=== PATIENT | female | born 1975 | race Caucasian/White ===

== ENCOUNTER 2024-08-23 12:27 | Emergency (ER) | payer BC ==
[2024-08-23 13:41] LABS: Absolute Eosinophils 0.1 K/uL (0-0.5); Absolute Lymphocytes (CBC) 1.6 K/uL (0.7-4.9); Absolute Monocytes 0.4 K/uL (0.1-1.3); Absolute Neutrophil 4.7 K/uL (1.8-8.0); Basophils % 0.6 % (0-1.3); Eosinophils % 2.2 % (0-4.4); Hematocrit 42.5 % (36.0-45.0); Hemoglobin 14.3 g/dL (12.0-15.0); Lymphocytes % 22.9 % (15.3-44.8); MCH 29.2 pg (27.0-35.0); MCHC 33.8 g/dL (32.0-36.0); MCV 86.5 fL (80-100); MPV 7.1 fL (7.6-11.3); Monocytes % 5.3 % (3.3-12.3); Nucleated Red Blood Cells % 0.1 % (0-0); Platelets 245 thou/uL (152-406); RBC Red Blood Cell Count 4.91 M/uL (3.86-4.86); Red Cell Distribution Width 12.6 % (12.1-15.2)
[2024-08-23 13:59] LABS: Albumin 3.7 g/dL (3.4-5.0); Anion Gap 10.1 mEq/L (5.0-15.0); Bilirubin Total 0.5 mg/dL (0.2-1.0); Globulin 3.8 g/dL (2.3-3.5); Potassium 4.1 mEq/L (3.5-5.1); Protein, Total 7.5 g/dL (6.4-8.2)
[2024-08-23] MEDS ORDERED: KETOROLAC 30 MG/ML INJ ONE (14:09)
[2024-08-23] MEDS ORDERED: ONDANSETRON 4 MG/2 ML VIAL ONE (14:09)
[2024-08-23] MEDS ORDERED: NA CHLORIDE 0.9% 1,000 ML ONE (14:09)
[2024-08-23] MEDS ORDERED: FAMOTIDINE 20 MG/2 ML VIAL IV ONE (14:09)
--- NOTE | 2024-08-23 15:07 | RAD REPORT ---
EXAMINATION: CT ABDOMEN AND PELVIS WITH CONTRAST CLINICAL INDICATION: Female, 49 years old.ABD PAIN TECHNIQUE: CT abdomen and pelvis was performed, after the administration of IV contrast, [facility]. Axial, sagittal and coronal reconstructions were obtained. One or more of the following dose reduction techniques were used: Automated exposure control, adjustment of the mA and/o r kV according to patient size, and/or iterative reconstruction. Unless otherwise specified, incidental findings do not require dedicated imaging follow-up. [id number]. COMPARISON: No prior exam. FINDINGS: LOWER CHEST: No acute process identified.No significant pericardial effusion. Mild circumferential th ickening of the distal esophagus which could reflect esophagitis. UPPER GI: No significant abnormality. LIVER: Hepatic steatosis, but otherwise unremarkable. GALLBLADDER/BILE DUCTS: Cholelithiasis without CT evidence of acute cholecystitis.? PANCREAS: No mass, ductal dilation, or rizwan-pancreatic fluid. SPLEEN: Low density splenic lesion(s), statistically benign. ADRENALS: No adrenal masses. KIDNEYS AND URETERS: No hydronephrosis.No suspicious renal mass. ABDOMINAL AORTA AND OTHER VESSELS: Normal caliber aorta and IVC. PERITONEUM: No abnormal free fluid. No free air. LYMPH NODES: No pathologic lymphadenopathy. ABDOMINAL WALL: Unremarkable SMALL BOWEL/COLON: Small bowel has normal course and caliber. No colonic wall thickening or pericolon ic inflammatory changes.Normal appendix. URINARY BLADDER: Underdistended but grossly unremarkable. REPRODUCTIVE ORGANS: 3.3 cm left adnexal cyst. MUSCULOSKELETAL: No acute or suspicious osseous abnormality. SI joint degenerative changes. ADDITIONAL FINDINGS: None. IMPRESSION: No acute or significant abnormalities seen in the abdomen or pelvis. Cholelithiasis without CT evidence of acute cholecystitis. 3.3 cm left adnexal cyst. If early post menopause, ultrasound follow-up in 6-12 months is recommended . If premenopausal, no follow-up required.
--- NOTE | 2024-08-23 15:40 | RAD REPORT ---
Abdomen Exam Limited: 08/23/2024 3:12 PM CLINICAL HISTORY: ABD PAIN STUDY: Limited right upper quadrant ultrasound of abdomen. COMPARISON: Prior films compared to CT Abdomen study dated same-day FINDINGS: Liver: Limited evaluation but grossly unremarkable. Bile ducts: No intrahepatic or extrahepatic biliary ductal dilatation. Common bile duct measures 5 mm. Gallbladder: Cholelithiasis. No gallbladder wall thickening. A sonographic Chaney sign was reported. IMPRESSION: Cholelithiasis but no gallbladder wall thickening or pericholecystic fluid. A sonographic Chaney sign was reported. Early or mild acute cholecystitis difficult to exclude.
--- NOTE | 2024-08-23 16:43 | ER ---
Nurse's Notes [facility] Name: Davina Wright Age: 49 yrs Sex: Female : 1975 Arrival Date: 08/23/2024 Time: 12:27 Bed 4 Private MD: Diagnosis: Upper abdominal pain, unspecified Presentation: 08/23 12:41 Chief complaint: Patient states: has been having a lot of stomach issues for a while, iw gas. bloating, loose stool. Coronavirus screen: At this time, the client does not indicate any symptoms associated with coronavirus-19. Ebola Screen: No symptoms or risks identified at this time. Initial Sepsis Screen: Does the patient meet any 2 criteria? No. Patient's initial sepsis screen is negative. Does the patient have a suspected source of infection? No. Patient's initial sepsis screen is negative. Risk Assessment: Do you want to hurt yourself or someone else? Patient reports no desire to harm self or others. Onset of symptoms was June 2024. 12:41 Method Of Arrival: Ambulatory iw 12:41 Acuity: SEFERINO 3 iw Historical: - Allergies: 12:46 Oxycodone HCl; iw - Home Meds: 12:44 propranolol 20 mg Oral tablet 2 times per day [Active]; fluoxetine 80 mg Oral tablet iw daily [Active]; buspirone 5 mg Oral tablet 2 times per day [Active]; prazosin 1 mg Oral capsule every evening [Active]; esomeprazole magnesium 40 mg oral capsule,delayed release (e.c.) [Active]; cetirizine 10 mg oral capsule daily [Active]; - PMHx: 12:44 Anxiety; iw 12:46 Gastroesophageal reflux disease; sb4 - Immunization history:: Adult Immunizations not up to date. - Infectious Disease History:: Denies. - Social history:: Smoking status: Patient denies any tobacco usage or history of. Screenin:22 Abuse screen: Denies threats or abuse. Nutritional screening: No deficits noted. ap3 Tuberculosis screening: No symptoms or risk factors identified. 16:58 [facility] ED Fall Risk Assessment (Adult) History of falling in the last 3 months, cm10 including since admission No falls in past 3 months (0 pts) Confusion or Disorientation No (0 pts) Intoxicated or Sedated No (0 pts) Impaired Gait No (0 pts) Mobility Assist Device Used No (0 pt) Altered Elimination No (0 pt) Score/Fall Risk Level 0 - 2 = Low Risk Oriented to surroundings, Maintained a safe environment, Hourly rounding (assess needs \T\ fall precautionary measures) done. Assessment: 14:21 General: Appears in no apparent distress. Behavior is calm, cooperative, appropriate ap3 for age. Pain: Complains of pain in abdomen. Neuro: Level of Consciousness is awake, alert, obeys commands, Oriented to person, place, time, situation, Appropriate for age. Cardiovascular: Patient's skin is warm and dry. Respiratory: Airway is patent Respiratory effort is even, unlabored, Respiratory pattern is regular, symmetrical. GI: Abdomen is non-distended, Abd is soft Reports upper abdominal pain, nausea. 16:57 Reassessment: Patient appears in no apparent distress at this time. Patient and/or cm10 family updated on plan of care and expected duration. Pain level reassessed. Patient is alert, oriented x 3, equal unlabored respirations, skin warm/dry/pink. Vital Signs: 12:41 BP 152 / 110; Pulse 81; Resp 16; Temp 97.6; Pulse Ox 98% on R/A; iw 14:22 BP 151 / 87; Pulse 60; Resp 18; Pulse Ox 97% ; Pain 7/10; ap3 16:56 BP 149 / 97; Pulse 65; Resp 15; Pulse Ox 97% ; cm10 14:22 Pain Scale: Adult ap3 ED Course: 12:30 Patient arrived in ED. mr 12:32 [facility] Guillen [facility]-C [facility]. sb4 12:32 Kishore Reed MD is Attending Physician. sb4 12:42 Triage completed. iw 12:42 Arm band placed on. iw 13:31 CBC with Diff Sent. bc6 13:31 CMP Sent. bc6 13:31 Lipase Sent. bc6 13:32 Initial lab(s) drawn, by me, sent to lab. Inserted saline lock: 20 gauge in left bc6 antecubital area, using aseptic technique. Blood collected. Flushed with 10 mL NS. 14:21 Jael Yang, RN is Primary Nurse. ap3 14:47 CT Abd/Pelvis - IV Contrast Only In Process Unspecified. EDMS 15:36 Abdomen Limited US In Process Unspecified. EDMS 16:42 Conor Baird MD is Referral Physician. sb4 16:42 Aditya Mccarthy MD is Referral Physician. sb4 16:56 Patient has correct armband on for positive identification. Bed in low position. cm10 Provided Education on: Follow-up instructios. 16:57 No provider procedures requiring assistance completed. IV discontinued, intact, cm10 bleeding controlled, No redness/swelling at site. Pressure dressing applied. Administered Medications: 14:16 Drug: Famotidine IVP 20 mg IVP once; dilute with 10 mL 0.9% NaCl; give over 2 minutes ap3 Route: IVP; Site: left antecubital; 16:58 Follow up: Response: No adverse reaction cm10 14:16 Drug: NS 0.9% IV 1000 ml IV at 1 bolus Per protocol; to be given as a bolus over 60 ap3 minutes Route: IV; Rate: 1 bolus; Site: left antecubital; 16:58 Follow up: Response: No adverse reaction; IV Status: Completed infusion; IV Intake: cm10 200ml 14:17 Drug: TORadol - Ketorolac IVP 15 mg IVP once Route: IVP; Site: left antecubital; ap3 16:58 Follow up: Response: No adverse reaction cm10 14:17 Drug: Ondansetron IVP 4 mg IVP once; over 2 minutes Route: IVP; Site: left antecubital; ap3 16:58 Follow up: Response: No adverse reaction cm10 Medication: 16:58 VIS not applicable for this client. cm10 Intake: 16:58 IV: 200ml; Total: 200ml. cm10 Outcome: 16:43 Discharge ordered by . sb4 16:57 Discharged to home ambulatory, with family, cm10 16:57 Condition: good 16:57 Discharge instructions given to patient, Instructed on discharge instructions, follow up and referral plans. no driving heavy equipment, Demonstrated understanding of instructions, follow-up care, medications, Prescriptions given X 2, 16:59 Patient left the ED. cm10 Signatures: Dispatcher [employer] EDSC Stephanie Pacheco, Reg Reg mr Charmaine Freeman, RN FABRICIO iw Jael Yang RN RN ap3 Ame Guillen, PADamian PALacey [email or web address] Veronica Baird RN RN cm10
--- NOTE | 2024-08-23 16:43 | EDPHYS ---
Physician Documentation [facility] Name: Davina Wright Age: 49 yrs Sex: Female : 1975 Arrival Date: 08/23/2024 Time: 12:27 Bed 4 Private MD: ED Physician Kishore Reed HPI: 08/23 12:47 This 49 yrs old Female presents to ER via Ambulatory with complaints of Abdominal Pain, sb4 Vomiting/Diarrhea. 12:47 Patient reports diffuse abdominal pain, intermittent nausea, vomiting, diarrhea for sb4 several months now. She was placed on esomeprazole a few months back which did seem to improve her symptoms. She was referred to a GI who wanted to do a colonoscopy and endoscopy but she could not afford it. States that she ate fajitas last night and this morning has had a lot more abdominal pain, bloating, nausea, and loose stool. Historical: - Allergies: 12:46 Oxycodone HCl; iw - Home Meds: 12:44 propranolol 20 mg Oral tablet 2 times per day [Active]; fluoxetine 80 mg Oral tablet iw daily [Active]; buspirone 5 mg Oral tablet 2 times per day [Active]; prazosin 1 mg Oral capsule every evening [Active]; esomeprazole magnesium 40 mg oral capsule,delayed release (e.c.) [Active]; cetirizine 10 mg oral capsule daily [Active]; - PMHx: 12:44 Anxiety; iw 12:46 Gastroesophageal reflux disease; sb4 - Immunization history:: Adult Immunizations not up to date. - Infectious Disease History:: Denies. - Social history:: Smoking status: Patient denies any tobacco usage or history of. ROS: 12:47 Constitutional: Negative for fever, chills, and weight loss, sb4 12:47 Abdomen/GI: Positive for abdominal pain, nausea, vomiting, and diarrhea, abdominal distension, 12:47 All other systems are negative, Exam: 12:47 Head/Face: Normocephalic, atraumatic. Eyes: Extra-ocular motions intact. Periorbital sb4 areas with no swelling, redness, or edema. ENT: Mucous membranes moist. Cardiovascular: Regular rate and rhythm with a normal S1 and S2. Respiratory: No increased work of breathing, no retractions or nasal flaring. Abdomen/GI: Soft, non-tender, no distension. Skin: Warm, dry with normal turgor. Normal color with no rashes, no lesions, and no evidence of cellulitis. MS/ Extremity: Pulses equal, no cyanosis. Neurovascular intact. Full, normal range of motion. Neuro: Awake and alert, GCS 15, oriented to person, place, time, and situation. Motor strength 5/5 in all extremities. Sensory grossly intact. 12:47 Constitutional: The patient appears alert, awake, uncomfortable, Vital Signs: 12:41 BP 152 / 110; Pulse 81; Resp 16; Temp 97.6; Pulse Ox 98% on R/A; iw 14:22 BP 151 / 87; Pulse 60; Resp 18; Pulse Ox 97% ; Pain 7/10; ap3 16:56 BP 149 / 97; Pulse 65; Resp 15; Pulse Ox 97% ; cm10 14:22 Pain Scale: Adult ap3 MDM: 12:33 Medical Screening Exam initiated sb4 16:42 Data reviewed: vital signs, nurses notes, lab test result(s), radiologic studies, and sb4 as a result, I will discharge patient. Counseling: I had a detailed discussion with the patient and/or guardian regarding the historical points, exam findings, and any diagnostic results supporting the discharge/admit diagnosis, lab results, radiology results, the need for outpatient follow up, for definitive care, to return to the emergency department if symptoms worsen or persist or if there are any questions or concerns that arise at home. 17:01 Special discussion: Based on the patient's Hx, exam, and Dx evaluation, there is no sb4 indication for emergent surgery or inpatient Tx. It is understood by the patient/guardian that if the Sx's persist or worsen they need to return immediately for re-evaluation. I discussed with the patient the need to follow-up with the PCP/specialist for the noted incidental finding on X-ray/CT scanning. 08/23 12:46 Order name: CBC with Diff; Complete Time: 13:44 sb4 08/23 12:46 Order name: CMP; Complete Time: 14:02 sb4 08/23 12:46 Order name: Lipase; Complete Time: 14:02 sb4 08/23 12:46 Order name: CT Abd/Pelvis - IV Contrast Only; Complete Time: 15:10 sb4 08/23 15:10 Order name: Abdomen Limited US; Complete Time: 15:41 sb4 08/23 12:46 Order name: IV Saline Lock; Complete Time: 13:31 sb4 08/23 12:46 Order name: Labs collected and sent; Complete Time: 13:31 sb4 08/23 16:15 Order name: PO challenge; Complete Time: 16:20 sb4 Administered Medications: 14:16 Drug: Famotidine IVP 20 mg IVP once; dilute with 10 mL 0.9% NaCl; give over 2 minutes ap3 Route: IVP; Site: left antecubital; 16:58 Follow up: Response: No adverse reaction cm10 14:16 Drug: NS 0.9% IV 1000 ml IV at 1 bolus Per protocol; to be given as a bolus over 60 ap3 minutes Route: IV; Rate: 1 bolus; Site: left antecubital; 16:58 Follow up: Response: No adverse reaction; IV Status: Completed infusion; IV Intake: cm10 200ml 14:17 Drug: TORadol - Ketorolac IVP 15 mg IVP once Route: IVP; Site: left antecubital; ap3 16:58 Follow up: Response: No adverse reaction cm10 14:17 Drug: Ondansetron IVP 4 mg IVP once; over 2 minutes Route: IVP; Site: left antecubital; ap3 16:58 Follow up: Response: No adverse reaction cm10 Disposition: 18:12 Co-signature as Attending Physician, Kishore Reed MD I reviewed the patient's care rn provided by the Advanced Practice Provider and agree with the diagnosis and treatment plan. Disposition Summary: 08/23/24 16:43 Discharge Ordered Notes: Location: Home sb4 Problem: an ongoing problem sb4 Symptoms: have improved sb4 Condition: Stable sb4 Diagnosis - Upper abdominal pain, unspecified sb4 Followup: sb4 - With: Conor Baird MD - When: As needed - Reason: Further diagnostic work-up, Recheck today's complaints, Re-evaluation by your physician Followup: sb4 - With: Aditya Mccarthy MD - When: 1 week - Reason: Recheck today's complaints, Re-evaluation by your physician Discharge Instructions: - Discharge Summary Sheet sb4 - Abdominal Pain, Adult sb4 - Biliary Colic, Adult sb4 - Gallbladder Eating Plan sb4 Forms: - Patient Portal Instructions sb4 - Leadership Thank You Letter sb4 Prescriptions: - ondansetron 4 mg Oral Tablet,disintegrating - take 1 tablet ORAL route every 4 to 6 hours As needed as needed for nausea and sb4 vomiting; 12 tablet; Refills: 0, Product Selection Permitted - dicyclomine 20 mg Oral tablet - take 1 tablet ORAL route 3 times per day PRN abdominal pain; 20 tablet; sb4 Refills: 0, Product Selection Permitted Signatures: Dispatcher [employer] EDMS Charmaine Freeman, Kishore Martinez RN, MD MD rn Prokisch, Amanda, RN RN ap3 Ame Guillen PA-C PADamian [email or web address] Veronica Baird RN cm10 Corrections: (The following items were deleted from the chart) 12:46 12:46 CBC+H.LAB.BRZ ordered. EDMS EDMS 12:46 12:46 COMPREHENSIVE METABOLIC PANEL+C.LAB.BRZ ordered. EDMS EDMS 12:46 12:46 LIPASE+C.LAB.BRZ ordered. EDMS EDMS 12:46 12:46 Urinalysis+U.LAB.BRZ ordered. EDMS EDMS 12:46 12:46 Abdomen Pelvis W Con+CT.RAD.BRZ ordered. EDMS EDMS
[2024-08-23 19:25] VITALS: TEMP 97.6
[2024-08-23 19:27] VITALS: O2SAT 97
[2024-08-23 19:28] VITALS: BP 149/97
== END 2024-08-23 16:59 | disposition home or self-care (01) ==
LOC: ER 12:27
DX: R10.10 Upper abdominal pain, unspecified (principal); R11.2 Nausea with vomiting, unspecified; K21.9 Gastro-esophageal reflux disease without esophagitis; F41.9 Anxiety disorder, unspecified
CPT/HCPCS: 85025; 36415; 83690; 80053; 74177; 76705; Q9967; J2405; J7030; 96361; 96374; 96375; 99284

== ENCOUNTER 2024-11-06 05:25 | Inpatient (IN) | payer BC ==
[2024-11-06] MEDS ORDERED: FAMOTIDINE 20 MG/2 ML VIAL IV ONE (05:42)
[2024-11-06] MEDS ORDERED: MORPHINE 4 MG/ML SYR ONE ×2 (05:42→08:53)
[2024-11-06] MEDS ORDERED: ONDANSETRON 4 MG/2 ML VIAL ONE ×2 (05:47→11:29)
[2024-11-06] MEDS ORDERED: PROMETHAZINE INJ 25 MG/ML AMP ONE (06:05)
[2024-11-06 06:13] LABS: Absolute Eosinophils 0.1 K/uL (0-0.5); Absolute Lymphocytes (CBC) 1.4 K/uL (0.7-4.9); Absolute Monocytes 0.3 K/uL (0.1-1.3); Basophils % 0.3 % (0-1.3); Eosinophils % 0.9 % (0-4.4); Hematocrit 40.7 % (36.0-45.0); Lymphocytes % 17.8 % (15.3-44.8); MCH 29.1 pg (27.0-35.0); MCHC 34.5 g/dL (32.0-36.0); MCV 84.3 fL (80-100); MPV 7.4 fL (7.6-11.3); Monocytes % 3.6 % (3.3-12.3); Neutrophils % 77.4 % (41.7-73.7); Platelets 233 thou/uL (152-406); RBC Red Blood Cell Count 4.83 M/uL (3.86-4.86); Red Cell Distribution Width 13.4 % (12.1-15.2)
[2024-11-06 06:43] LABS: ALT/SGPT 19 U/L (13-56); Albumin 3.8 g/dL (3.4-5.0); Alkaline Phosphatase 91 U/L (45-117); Anion Gap 11.8 mEq/L (5.0-15.0); BUN Blood Urea Nitrogen 9 mg/dL (7-18); Bicarbonate 23 mEq/L (21-32); Bilirubin Total 0.4 mg/dL (0.2-1.0); Globulin 3.7 g/dL (2.3-3.5); Glomerular Filtration Rate 64 ml/min (=/>90); Glucose Level 139 mg/dL (74-106); Lipase 35 U/L (13-75); Potassium 3.8 mEq/L (3.5-5.1); Protein, Total 7.5 g/dL (6.4-8.2); Sodium Level 138 mEq/L (136-145)
[2024-11-06 06:47] LABS: AST/SGOT < 10 U/L (15-37)
--- NOTE | 2024-11-06 07:56 | RAD REPORT ---
EXAMINATION: Abdomen Pelvis W Contrast CLINICAL INDICATION: Female, 49 years old.ABD PAIN TECHNIQUE: CT abdomen and pelvis was performed, after the administration of IV contrast, [facility]. Axial, sagittal and coronal reconstructions were obtained. One or more of the following dose reduction techniques were used: Automated exposure control, adjustment of the mA and/o r kV according to patient size, and/or iterative reconstruction. Unless otherwise specified, incidental findings do not require dedicated imaging follow-up. [id number]. COMPARISON: No prior exam. FINDINGS: LOWER CHEST: No acute process identified.No significant pericardial effusion. Fluid present in the di stal esophagus. UPPER GI: No significant abnormality. LIVER: Hepatic steatosis, but otherwise unremarkable. GALLBLADDER/BILE DUCTS: Cholelithiasis without CT evidence of acute cholecystitis.? PANCREAS: No mass, ductal dilation, or rizwan-pancreatic fluid. SPLEEN: Unremarkable. ADRENALS: No adrenal masses. KIDNEYS AND URETERS: No hydronephrosis.No suspicious renal mass.No renal calculi. ABDOMINAL AORTA AND OTHER VESSELS: Mild atherosclerotic changes. PERITONEUM: No abnormal free fluid. No free air. LYMPH NODES: No pathologic lymphadenopathy. ABDOMINAL WALL: Unremarkable SMALL BOWEL/COLON: Small bowel has normal course and caliber. No colonic wall thickening or pericolon ic inflammatory changes.Normal appendix. Moderate stool to cecum. Slightly distended terminal ileum but without appreciable inflammatory changes. URINARY BLADDER: Underdistended but grossly unremarkable. REPRODUCTIVE ORGANS: 3.3 cm left adnexal cyst. This is unchanged since 08/23/2024.If early post menopa use, ultrasound follow-up in 6-12 months is recommended. If premenopausal, no follow-up required. MUSCULOSKELETAL: No acute or suspicious osseous abnormality. ADDITIONAL FINDINGS: None. IMPRESSION: No acute findings within the abdomen or pelvis. Moderate stool in the cecum could reflect constipatio n. No appendicitis. Cholelithiasis without CT evidence of acute cholecystitis.
--- NOTE | 2024-11-06 08:06 | RAD REPORT ---
Abdomen Exam Limited: 11/06/2024 7:35 AM CLINICAL HISTORY: ABD PAIN STUDY: Limited right upper quadrant ultrasound of abdomen. COMPARISON: 08/23/2024 FINDINGS: Liver: Limited evaluation but grossly unremarkable. Bile ducts: No intrahepatic or extrahepatic biliary ductal dilatation. Common bile duct measures 4 mm. Gallbladder: Cholelithiasis. No gallbladder wall thickening. The gallbladder is distended. A sonograp hic Chaney sign was reported. IMPRESSION: Cholelithiasis with distended gallbladder and sonographic Chaney sign could be compatible with acute cholecystitis in the appropriate clinical setting though the patient had similar findings on 08/23/2024.
--- NOTE | 2024-11-06 08:51 | EDPHYS ---
Physician Documentation [facility] Name: Davina Wright Age: 49 yrs Sex: Female : 1975 Arrival Date: 11/06/2024 Time: 05:25 Bed 7 Private MD: Sincere Corley E ED Physician Kishore Reed HPI: 11/06 05:54 This 49 yrs old Female presents to ER via Ambulatory with complaints of Rt side abd ms3 pain, Nausea/Vomiting. 05:54 49-year-old female past medical history of anxiety, GERD presents to the emergency ms3 department for right sided abdominal pain that radiates to the epigastrium that began at 1 AM. Patient states her pain is a 9/10. She denies any alleviating or inciting factors. Patient endorses nausea and vomiting. She denies fevers or chills.. 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 LMP N/A - Post-menopause, Not lg3 Historical: - Allergies: 05:36 Oxycodone HCl; lg3 - Home Meds: 09:01 buspirone 5 mg Oral tablet 2 times per day [Active]; cetirizine 10 mg Oral capsule iw daily [Active]; esomeprazole magnesium 20 mg oral tablet, delayed release (enteric coated) daily [Active]; prazosin 1 mg Oral capsule every day at bedtime [Active]; levothyroxine 75 mcg oral capsule daily [Active]; Lunesta 3 mg oral tablet every day at bedtime [Active]; Fluoxetine 80 mg Oral daily [Active]; clonazepam 1 mg Oral tablet as needed [Active]; 09:04 propranolol 20 mg Oral tablet 2 times per day [Active]; iw - PMHx: 05:36 Anxiety; Gastroesophageal reflux disease; lg3 - PSHx: 05:36 None; lg3 - Immunization history:: Adult Immunizations up to date. - Infectious Disease History:: Denies. - Social history:: Smoking status: Patient denies any tobacco usage or history of. ROS: 05:54 Constitutional: Negative for fever, and chills. Cardiovascular: Negative for chest ms3 pain, and palpitations. Respiratory: Negative for shortness of breath, cough, wheezing, and pleuritic chest pain, MS/Extremity: Negative for injury and deformity, Skin: Negative for injury, rash, and discoloration, 05:54 Abdomen/GI: Positive for abdominal pain, nausea, vomiting, Exam: 05:54 Constitutional: This is a well developed, well nourished patient who is awake, alert, ms3 and in no acute distress. Cardiovascular: Regular rate and rhythm with a normal S1 and S2. No gallops, murmurs, or rubs. Normal PMI, no JVD. No pulse deficits. Respiratory: Lungs have equal breath sounds bilaterally, clear to auscultation and percussion. No rales, rhonchi or wheezes noted. No increased work of breathing, no retractions or nasal flaring. 05:54 Abdomen/GI: Inspection: abdomen appears normal, Bowel sounds: normal, Palpation: moderate abdominal tenderness, in the right upper quadrant and right lower quadrant, Vital Signs: 05:31 BP 160 / 102; Pulse 75; Resp 22; Temp 97.6(O); Pulse Ox 100% on R/A; Weight 131.54 kg; lg3 Height 5 ft. 6 in. ; Pain 9/10; 06:02 BP 157 / 91; Pulse 60; Resp 17 S; Pulse Ox 100% on R/A; ha1 06:32 BP 156 / 84; Pulse 54; Resp 18; Temp 97.6; Pulse Ox 100% ; Pain 6/10; bm8 07:30 BP 142 / 93; Pulse 58; Resp 15; Pulse Ox 99% on R/A; hb 05:31 Body Mass Index 46.81 (131.54 kg, 167.64 cm) lg3 05:31 Pain Scale: Adult lg3 06:32 Pain Scale: Adult bm8 Shin Coma Score: 06:32 Eye Response: spontaneous(4). Motor Response: obeys commands(6). Verbal Response: bm8 oriented(5). Total: 15. MDM: 05:34 Medical Screening Exam initiated ms3 05:54 Differential diagnosis: Nonspecific abd pain, gastritis, cholecystitis, pancreatitis, ms3 appendicitis, diverticulitis, viral gastroenteritis. 07:10 Transition of care: After a detail discussion of the patient's case, care is ms3 transferred to Kishore Reed MD. 08:48 Data reviewed: vital signs, nurses notes, lab test result(s), radiologic studies, CT rn scan, ultrasound, and as a result, I will admit patient. Consideration of Admission/Observation Patient was admitted/placed on observation. Escalation of care including admission/observation considered. Management of patient was discussed with the following: Gang Punch Operator: Discussed case with Dr. Mccarthy, will evaluate patient. Will admit to hospitalist service for intractable pain, cholelithiasis and possibly early cholecystitis versus gastritis/duodenitis.. Counseling: I had a detailed discussion with the patient and/or guardian regarding the historical points, exam findings, and any diagnostic results supporting the discharge/admit diagnosis, lab results, radiology results, the need for further work-up and treatment in the hospital. Response to treatment: the patient's symptoms have mildly improved after treatment, and as a result, I will admit patient. 08:50 ED course: Patient still with abdominal tenderness and nausea. Will redose morphine. CT rn no acute findings but ultrasound with cholelithiasis and sonographic Chaney sign with distention of gallbladder. No biliary dilatation. Normal LFTs and lipase.. 11/06 05:34 Order name: CBC with Diff; Complete Time: 06:43 ms3 11/06 05:34 Order name: CMP; Complete Time: 06:48 ms3 11/06 05:34 Order name: Lipase; Complete Time: 06:48 ms3 11/06 05:34 Order name: Urinalysis w/ reflexes ms3 11/06 10:06 Order name: CBC with Automated Diff EDIA 11/06 10:06 Order name: CBC with Automated Diff EDMS 11/06 10:06 Order name: CBC with Automated Diff EDMS 11/06 10:06 Order name: Comprehensive Metabolic Panel EDIA 11/06 10:06 Order name: Comprehensive Metabolic Panel EDIA 11/06 10:06 Order name: Comprehensive Metabolic Panel EDIA 11/06 05:34 Order name: CT Abd/Pelvis - IV Contrast Only; Complete Time: 08:09 ms3 11/06 07:35 Order name: US Abdomen Limited; Complete Time: 08:09 rn 11/06 10:01 Order name: CONS Physician Consult EDIA 11/06 05:34 Order name: IV Saline Lock; Complete Time: 05:50 ms3 11/06 05:34 Order name: Labs collected and sent; Complete Time: 05:50 ms3 Administered Medications: 05:51 Drug: Famotidine IVP 20 mg IVP once; dilute with 10 mL 0.9% NaCl; give over 2 minutes bm8 Route: IVP; Site: right antecubital; 06:04 Follow up: Response: No adverse reaction; Nausea is decreased ha1 05:52 Drug: morphine IVP or IV 4 mg IVP once over 4 mins Route: IVP; Infused Over: 4 mins; bm8 Site: right antecubital; 06:04 Follow up: Response: No adverse reaction; Pain is unchanged, physician notified; RASS: ha1 Restless (+1) 05:52 Drug: Ondansetron IVP 4 mg IVP once; over 2 minutes Route: IVP; Site: right antecubital;bm8 06:04 Follow up: Response: No adverse reaction; Nausea is decreased ha1 06:33 Drug: Phenergan (promethazine) 12.5 mg IM once Route: IM; Site: right deltoid; bm8 08:08 Follow up: Response: No adverse reaction hb 09:01 Drug: morphine IVP or IV 4 mg IVP once over 4 mins Route: IVP; Infused Over: 4 mins; iw Site: right antecubital; Disposition Summary: 11/06/24 08:50 Hospitalization Ordered Notes: Hospitalization Status: Observation rn Provider: Brenden Dai rn Condition: Stable rn Problem: new rn Symptoms: are unchanged rn Bed/Room Type: Standard rn Location: Telemetry/MedSurg (observation)(11/06/24 13:45) Room Assignment: [facility](11/06/24 13:45) eb Diagnosis - Other cholelithiasis without obstruction rn - Nausea with vomiting, unspecified rn - Intractable abdominal pain rn Forms: - Medication Reconciliation Form rn - SBAR form rn - Leadership Thank You Letter rn Signatures: Dispatcher [employer] Charmaine Chapin, RN RN Kishore Reed MD MD rn Baxter, Heather RN RN Tracy Mejia Lacie RN RN [email or web address] Eric Cartagena DO DO ms3 Brian Echeverria RN RN bm8 Chasidy Dotson RN ha1 Corrections: (The following items were deleted from the chart) 05:35 05:35 Abdomen Pelvis W Con+CT.RAD.BRZ ordered. EDIA EDMS 10:28 08:50 Telemetry/MedSurg (observation) rn 10:28 08:50 rn hb 13:45 10:28 [facility] ER HOLD hb eb 13:45 10:28 ERHOLD- hb eb
--- NOTE | 2024-11-06 08:51 | ER ---
Nurse's Notes [facility] Name: Davina Wright Age: 49 yrs Sex: Female : 1975 Arrival Date: 11/06/2024 Time: 05:25 Bed 7 Private MD: Sincere Corley E Diagnosis: Other cholelithiasis without obstruction;Nausea with vomiting, unspecified;Intractable abdominal pain Presentation: 11/06 05:31 Chief complaint: Patient states: rt abdominal pain radiating to rt flank, n/v that lg3 began at 1am. Coronavirus screen: At this time, the client does not indicate any symptoms associated with coronavirus-19. Ebola Screen: No symptoms or risks identified at this time. Initial Sepsis Screen: Does the patient meet any 2 criteria? No. Patient's initial sepsis screen is negative. Does the patient have a suspected source of infection? No. Patient's initial sepsis screen is negative. Risk Assessment: Do you want to hurt yourself or someone else? Patient reports no desire to harm self or others. Onset of symptoms was November 06, 2024 at 01:00. 05:31 Method Of Arrival: Ambulatory lg3 05:31 Acuity: SEFERINO 3 lg3 Triage Assessment: 05:36 General: Appears in no apparent distress. uncomfortable, Behavior is cooperative, lg3 appropriate for age, anxious. Pain: Complains of pain in anterior aspect of right lateral abdomen, right upper quadrant and right lower quadrant Pain radiates to anterior aspect of right lateral abdomen Pain currently is 9 out of 10 on a pain scale. GI: Abdomen is obese, Pt is actively vomiting clear fluid, Abdomen is tender to palpation in right upper quadrant and right lower quadrant Reports lower abdominal pain, upper abdominal pain, nausea, vomiting. 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 LMP N/A - Post-menopause, Not lg3 Historical: - Allergies: 05:36 Oxycodone HCl; lg3 - Home Meds: 09:01 buspirone 5 mg Oral tablet 2 times per day [Active]; cetirizine 10 mg Oral capsule iw daily [Active]; esomeprazole magnesium 20 mg oral tablet, delayed release (enteric coated) daily [Active]; prazosin 1 mg Oral capsule every day at bedtime [Active]; levothyroxine 75 mcg oral capsule daily [Active]; Lunesta 3 mg oral tablet every day at bedtime [Active]; Fluoxetine 80 mg Oral daily [Active]; clonazepam 1 mg Oral tablet as needed [Active]; 09:04 propranolol 20 mg Oral tablet 2 times per day [Active]; iw - PMHx: 05:36 Anxiety; Gastroesophageal reflux disease; lg3 - PSHx: 05:36 None; lg3 - Immunization history:: Adult Immunizations up to date. - Infectious Disease History:: Denies. - Social history:: Smoking status: Patient denies any tobacco usage or history of. Screenin:50 [facility] ED Fall Risk Assessment (Adult) History of falling in the last 3 months, bm8 including since admission No falls in past 3 months (0 pts) Confusion or Disorientation No (0 pts) Intoxicated or Sedated No (0 pts) Impaired Gait No (0 pts) Mobility Assist Device Used No (0 pt) Altered Elimination No (0 pt) Score/Fall Risk Level 0 - 2 = Low Risk Oriented to surroundings, Maintained a safe environment, Educated pt \T\ family on fall prevention, incl call for assistance when getting out of bed, Assessed \T\ reinforced patient's understanding of fall precautions, Hourly rounding (assess needs \T\ fall precautionary measures) done, Used ambulatory aids as needed (educated on \T\ assisted with), Used gait belt as appropriate. Abuse screen: Denies threats or abuse. Nutritional screening: No deficits noted. Tuberculosis screening: No symptoms or risk factors identified. 05:50 Abuse screen: Denies threats or abuse. Denies injuries from another. Nutritional ha1 screening: No deficits noted. Tuberculosis screening: No symptoms or risk factors identified. Assessment: 05:39 General: Appears uncomfortable, Behavior is cooperative, anxious. Pain: Complains of ha1 pain in right upper quadrant and anterior aspect of right lateral abdomen Pain radiates to posterior aspect of right lateral abdomen Pain currently is 9 out of 10 on a pain scale. Quality of pain is described as aching, throbbing. Neuro: Level of Consciousness is awake, alert, obeys commands, Oriented to person, place, time, situation. Cardiovascular: Capillary refill < 3 seconds Patient's skin is warm and dry. Respiratory: Airway is patent Respiratory effort is even, unlabored, Respiratory pattern is regular, symmetrical. GI: Abdomen is round obese, Reports upper abdominal pain, nausea, vomiting. : No signs and/or symptoms were reported regarding the genitourinary system. Derm: Skin is healthy with good turgor, Skin is moist, Skin is normal. Musculoskeletal: Circulation, motion, and sensation intact. Range of motion: intact in all extremities. 06:02 Reassessment: REQUESTING PAIN MEDICATION DR. DESAI NOTIFIED. ha1 06:32 Reassessment: Patient appears in no apparent distress at this time. Patient and/or bm8 family updated on plan of care and expected duration. Pain level reassessed. Patient states feeling better. Patient states symptoms have improved. Pain: Pain currently is 6 out of 10 on a pain scale. 07:30 Reassessment: Patient appears in no apparent distress at this time. Patient and/or hb family updated on plan of care and expected duration. Pain level reassessed. Patient is alert, oriented x 3, equal unlabored respirations, skin warm/dry/pink. Vital Signs: 05:31 BP 160 / 102; Pulse 75; Resp 22; Temp 97.6(O); Pulse Ox 100% on R/A; Weight 131.54 kg; lg3 Height 5 ft. 6 in. ; Pain 9/10; 06:02 BP 157 / 91; Pulse 60; Resp 17 S; Pulse Ox 100% on R/A; ha1 06:32 BP 156 / 84; Pulse 54; Resp 18; Temp 97.6; Pulse Ox 100% ; Pain 6/10; bm8 07:30 BP 142 / 93; Pulse 58; Resp 15; Pulse Ox 99% on R/A; hb 05:31 Body Mass Index 46.81 (131.54 kg, 167.64 cm) lg3 05:31 Pain Scale: Adult lg3 06:32 Pain Scale: Adult bm8 Sayre Coma Score: 06:32 Eye Response: spontaneous(4). Motor Response: obeys commands(6). Verbal Response: bm8 oriented(5). Total: 15. ED Course: 05:27 Patient arrived in ED. gm2 05:28 Sincere Corley MD is Private Physician. gm2 05:30 Eric Desai DO is Attending Physician. ms3 05:36 Triage completed. lg3 05:36 Arm band placed on right wrist. lg3 05:50 Brian Echeverria RN is Primary Nurse. bm8 05:50 Inserted saline lock: 20 gauge in right antecubital area, using aseptic technique. ha1 Blood collected. Flushed with 10 mL NS. 05:50 CBC with Diff Sent. ha1 05:50 CMP Sent. ha1 05:50 Lipase Sent. ha1 05:51 Patient has correct armband on for positive identification. Bed in low position. Call bm8 light in reach. Side rails up X 1. Adult w/ patient. Client placed on continuous cardiac and pulse oximetry monitoring. NIBP monitoring applied. Pulse ox on. NIBP on. Door closed. Noise minimized. Verbal reassurance given. Head of bed elevated. 05:51 No provider procedures requiring assistance completed. Initial lab(s) drawn, by ED bm8 staff, sent to lab. Patient maintains SpO2 saturation greater than 95% on room air. 07:10 Attending Physician role handed off by Eric Desai DO ms3 07:10 Kishore Reed MD is Attending Physician. ms3 07:45 CT Abd/Pelvis - IV Contrast Only In Process Unspecified. EDMS 08:00 US Abdomen Limited In Process Unspecified. EDMS 08:49 Brenden Dai MD is Hospitalizing Provider. rn 10:28 Patient admitted, IV remains in place. hb 11:31 Primary Nurse role handed off by Brian Echeverria, FABRICIO eb Administered Medications: 05:51 Drug: Famotidine IVP 20 mg IVP once; dilute with 10 mL 0.9% NaCl; give over 2 minutes bm8 Route: IVP; Site: right antecubital; 06:04 Follow up: Response: No adverse reaction; Nausea is decreased ha1 05:52 Drug: morphine IVP or IV 4 mg IVP once over 4 mins Route: IVP; Infused Over: 4 mins; bm8 Site: right antecubital; 06:04 Follow up: Response: No adverse reaction; Pain is unchanged, physician notified; RASS: ha1 Restless (+1) 05:52 Drug: Ondansetron IVP 4 mg IVP once; over 2 minutes Route: IVP; Site: right antecubital;bm8 06:04 Follow up: Response: No adverse reaction; Nausea is decreased ha1 06:33 Drug: Phenergan (promethazine) 12.5 mg IM once Route: IM; Site: right deltoid; bm8 08:08 Follow up: Response: No adverse reaction hb 09:01 Drug: morphine IVP or IV 4 mg IVP once over 4 mins Route: IVP; Infused Over: 4 mins; iw Site: right antecubital; Medication: 05:50 VIS not applicable for this client. bm8 Outcome: 08:50 Decision to Hospitalize by Provider. rn 10:28 Admitted to ER Hold. Please see [facility] for further documentation. 10:28 Condition: stable 10:28 Instructed on the need for admit, Demonstrated understanding of 15:06 Patient left the ED. ss Signatures: Dispatcher [employer] Charmaine Chapin, RN RN Kishore Reed MD MD rn Blanchard, Shelby, RN RN Lizette Kat RN RN Tracy Mejia Lacie, RN RN lg3 Eric Desai, DO ms3 Chasidy Dtoson, FABRICIO RN ha1 Katie Garcia gm2 Brian Echeverria RN RN bm8
[2024-11-06] MEDS: NA CHLORIDE 0.9% 1,000 ML IV SCH (10:00)
[2024-11-06] MEDS ORDERED: SODIUM CHLORIDE 0.9% 10ML INJ IV PRN (10:21)
[2024-11-06] MEDS ORDERED: NA CHLORIDE 0.9% 1,000 ML ONE (11:29)
[2024-11-06] MEDS ORDERED: MORPHINE 2 MG/ML SYR ONE (11:29)
[2024-11-06] MEDS: MORPHINE 2 MG/ML SYR IV PRN (11:32)
[2024-11-06] MEDS: ONDANSETRON 4 MG/2 ML VIAL IV PRN (11:33)
--- NOTE | 2024-11-06 11:55 | P.HP ---
Certification for Inpatient Patient admitted to: Observation <Michael Cruz - Last Filed: 11/06/24 17:52> Patient History Date of Service: 11/06/24 Reason for admission: Right upper quadrant abdominal pain History of Present Illness: Patient is a pleasant 49-year-old female with past medical history of anxiety, gastroesophageal reflux disease, depression, who presents to the ER today complaining of worsening abdominal pain mostly located right upper quadrant, with associated nausea and vomiting nonbilious and nonbloody content with no associated chest pain. Patient states her symptoms started around 1 AM in the morning and have progressively worsened which then prompted her to report to ER. Patient describes her pain as constant and aching with the pain scale of 9/10 on arrival to ER. During admission assessment, patient states she felt much better compared to when she arrived to ER after receiving morphine IV. Patient positive for rebound tenderness on assessment. Patient had an ultrasound abdomen done in ER with impression of cholelithiasis with distended gallbladder and sonographic Chaney sign could be compatible with acute cholecystitis in the appropriate clinical setting though the patient has similar findings on 08/23/24. Patient CT of the abdomen impression, no acute findings within the abdomen or pelvis. Moderate stool in the cecum could reflect constipation. No appendicitis. Cholelithiasis within CT evidence of acute cholecystitis. Patient admitted with acute cholecystitis with surgical consult with Dr. Aditya Mccarthy, and he responded, spoke to the patient and schedule for surgery, and requested for patient to be n.p.o. after midnight. - Past Medical/Surgical History -: Depression -: Anxiety - Social History Smoking Status: Never smoker Place of Residence: Home <Michael Cruz - Last Filed: 11/06/24 17:52> Date of Service: 11/06/24 <Adam Reed - Last Filed: 11/07/24 06:49> Allergies oxycodone Allergy (Verified 11/06/24 09:42) Anaphylaxis Home Medications: Buspirone HCl [Buspar*] 5 mg PO BID 11/06/24 Cetirizine HCl [All Day Allergy Relief] 10 mg PO DAILY 11/06/24 Esomeprazole Magnesium 20 mg PO DAILY 11/06/24 Eszopiclone [Lunesta] 3 mg PO BEDTIME 11/06/24 Fluoxetine HCl [Prozac] 80 mg PO DAILY 11/06/24 Levothyroxine [Synthroid*] 75 mcg PO [id number] 11/06/24 Prazosin HCl 1 mg PO BEDTIME 11/06/24 Propranolol [Inderal*] 20 mg PO BID 11/06/24 clonazePAM [Clonazepam] 1 mg PO TID PRN 11/06/24 Review of Systems General: Unremarkable Eyes: Unremarkable ENT: Unremarkable Respiratory: Unremarkable Cardiovascular: Unremarkable Gastrointestinal: Nausea, Vomiting, Abdominal Pain Genitourinary: Unremarkable Musculoskeletal: Unremarkable Integumentary: Unremarkable Neurological: Unremarkable Lymphatics: Unremarkable <Michael Cruz - Last Filed: 11/06/24 17:52> Physical Examination - Vital Signs Temperature: 98 F Blood Pressure: 118/98 Pulse: 77 Respirations: 15 Pulse Ox (%): 100 - Physical Exam General: Oriented x3 HEENT: Atraumatic, Normocephalic, PERRLA Neck: Supple, JVD not distended, No Thyromegaly Respiratory: Clear to auscultation bilaterally, Normal air movement Cardiovascular: Normal pulses, Regular rate/rhythm, Normal S1 S2, No gallops Capillary refill: <2 Seconds Gastrointestinal: Normal bowel sounds, Tenderness, Rebound, Guarding Musculoskeletal: No clubbing, No swelling, No tenderness Integumentary: No rashes, No breakdown Neurological: Normal gait, Normal speech, Normal tone, Sensation intact, Cranial nerves 3-12 intact, Normal affect Lymphatics: No axilla or inguinal lymphadenopathy External genitalia: No edema Rectal: Normal - Studies Laboratory Data (last 24 hrs) 11/06/24 11/06/24 05:49 05:49 WBC 7.80 Hgb 14.0 Hct 40.7 Plt Count 233 Sodium 138 Potassium 3.8 BUN 9 Creatinine 1.06 H Glucose 139 H Total Bilirubin 0.4 AST < 10 L ALT 19 Alkaline Phosphatase 91 Lipase 35 <Michael Cruz - Last Filed: 11/06/24 17:52> - Studies Laboratory Data (last 24 hrs) 11/06/24 05:49 Sodium 138 Potassium 3.8 BUN 9 Creatinine 1.06 H Glucose 139 H Total Bilirubin 0.4 AST < 10 L ALT 19 Alkaline Phosphatase 91 Lipase 35 <Adam Reed - Last Filed: 11/07/24 06:49> Female Exam - Breasts Breasts: Normal configuration - Female Pelvic Uterus: Non-tender <Michael Cruz - Last Filed: 11/06/24 17:52> Assessment and Plan - Problems (Diagnosis) (1) Cholecystitis, acute with cholelithiasis Current Visit: Yes Status: Acute Qualifiers: Biliary obstruction: without biliary obstruction Qualified Code(s): K80.00 - Calculus of gallbladder with acute cholecystitis without obstruction - Plan Assessment and plan Patient is a 49-year-old female reports to the ER today complaining of severe abdominal pain associated with nausea and vomiting nonbilious and nonbloody content, with no associated chest pain. On admission assessment, patient is positive for rebound tenderness. Patient radiographic studies indicate cholelithiasis with distended gallbladder and sonographic Chaney sign could be compatible with acute cholecystitis in the appropriate clinical setting. (1) acute cholelithiasis with acute cholecystitis. -Surgical consult Dr. Aditya Khan done and he responded for surgery tomorrow, n.p.o. after midnight. Morphine 2 mg IV every 4 hours as needed. Zofran 4 mg IV every 6 hours as needed IV NS at 75 mL/ hr. N.p.o. except sips of water with medications. Both CT of the abdomen and pelvis done in ER, and ultrasound abdomen done. (2) chronic GERD. Protonix 40 mg IV daily. (3) Explained entire treatment plan to the patient, solicit questions answered and voiced understanding. Discharge Plan: Home - Advance Directives Does patient have a Living Will: No Does patient have a Durable POA for Healthcare: No - Code Status/Comfort Care Code Status: Full Code Critical Care: No Time Spent Managing Pts Care (In Minutes): 55 <Michael Cruz - Last Filed: 11/06/24 17:52> - Plan Patient's chart/notes/orders/results reviewed and case discussed with COUNT ROOM CLERK Nancy review COUNT ROOM CLERK Kalina. I agree with plan of care as noted above with the following additions / corrections: continue antibiotics NPO, general surgery consulted, IVF <Adam Reed - Last Filed: 11/07/24 06:49>
--- NOTE | 2024-11-06 15:25 | CON ---
Date of Consultation: 11/06/2024 Brief Hpi: The patient is a 49-year-old female with past medical history of anxiety, GERD, depressio n who presents to the emergency room today with approximately 1 day history of epigastric with now ri ght upper quadrant abdominal pain. She has had similar episodes before in the past but never at this level of intensity. She is uncertain of exactly what she had to eat earlier in the day, but she sta alise she has had similar episodes before in the past, but as described, never to this level of intensi ty and as such, she came to the emergency room with the above-stated complaints. Since being in the hospital, her pain is significantly improved but not completely resolved at this point, and it remain s in the right upper quadrant, but significantly improved after the pain medication as described. Past Medical History: Depression, anxiety, GERD. Allergies: TO OXYCODONE. Social History: She denies smoking, alcohol, recreational drug use. Review of Systems: 10 point review of systems other than HPI denies. Physical Examination: General: At the time of my examination, she is awake, alert, and oriented. Psychiatric: She is appropriate, conversive. She is in no distress. HEENT: She is normocephalic. Sclerae anicteric. Mucous membranes are moist. Oropharynx is clear. Neck: Supple without JVD. Chest: Normal expansion and excursion. Cardiovascular: Regular rate and rhythm. Pulmonary: Clear to auscultation bilaterally. Abdomen: Soft with mild right upper quadrant tenderness to palpation. Also in the epigastrium. No rebound. No guarding. No focal peritonitis. Negative Chaney sign at time of my examination. Extremities: No clubbing, cyanosis, edema. Skin: Warm and dry. Laboratory Exam: Reveals white blood cell count of 7.8, hemoglobin is 14.0, hematocrit of 48.7, plat elet count is 233. Her sodium 138, potassium 3.8, chloride 107, carbon dioxide 23, BUN is 9, creatin ine 1.06, glucose was 139. Total bilirubin 0.4, AST less than 10, ALT 19, alkaline phosphatase was 9 1, lipase is 35. UA is currently pending. She had imaging performed, which included CT of the abdom en and pelvis, officially read as no acute findings within the abdomen and pelvis. Moderate stool in the cecum, could reflect constipation. No appendicitis. Cholelithiasis without evidence of acute c holecystitis. She had ultrasound performed as well which showed cholelithiasis with distended gallbl adder and sonographic Chaney sign, could be compatible with acute cholecystitis in the appropriate cl inical setting. The patient has had similar findings on 08/23/2024. There is no gallbladder wall th ickening. Assessment And Plan: This is a 49-year-old female who comes in with signs and symptoms of biliary co lic. 1. IV fluid hydration. 2. Antibiotic coverage. 3. Serial abdominal exams. 4. I have explained the risks, benefits, and alternatives of laparoscopic possible open cholecystecto my with indocyanine green cholangiography, including but not limited to bleeding, infection, damage t o surrounding tissue, need for further operative procedures, injury to bile ducts, intestines, blood clots, heart attacks, stroke, other unforeseen complications in the perioperative period. We will se e how the patient progresses over the course of the evening. If she improves, she would like to proc eed as an outpatient basis. However, if she worsens and her symptoms get progressively worse, I have recommended that she have a semi-urgent laparoscopic cholecystectomy tomorrow as indicated above. T he patient displayed understanding of the above stated plan, agreed to proceed as indicated. She justa l be NPO midnight in preparation for possible need for surgery versus advancement of the diet and fol low up as an outpatient. Thank you for this interesting consult. RADHA/BRICE Voice ID: [id number] Report ID: [id number]
[2024-11-06 23:57] LABS: Specific Gravity > 1.030 (1.005-1.030); Sqamous Epithelial <5 /HPF (None Seen); Urine Bacteria <20 /HPF (<20); Urine Bilirubin NEGATIVE (Negative); Urine Blood Negative (Negative); Urine Clarity Clear (Clear); Urine Color Light-Yellow (Yellow); Urine Culture Reflex Order NOT NEEDED; Urine Glucose NEGATIVE (Negative); Urine Ketones NEGATIVE (Negative); Urine Microscopic Reflex YN ORDER UMIC; Urine Mucus 1+ /HPF (None Seen); Urine Nitrite NEGATIVE (Negative); Urine Protein TRACE (Negative); Urine RBC <5 /HPF (None Seen); Urine Urobilinogen Normal (Normal); Urine WBC <5 /HPF (<5); Urine pH 6.5 (5.0-7.0)
[2024-11-07] MEDS: ACETAMINOPHEN 325 MG TABLET PO PRN (01:01)
[2024-11-07 07:53] LABS: Absolute Eosinophils 0.1 K/uL (0-0.5); Absolute Lymphocytes (CBC) 1.7 K/uL (0.7-4.9); Absolute Monocytes 0.4 K/uL (0.1-1.3); Absolute Neutrophil 3.1 K/uL (1.8-8.0); Basophils % 0.7 % (0-1.3); Eosinophils % 1.4 % (0-4.4); Hematocrit 37.2 % (36.0-45.0); Hemoglobin 12.7 g/dL (12.0-15.0); Lymphocytes % 31.3 % (15.3-44.8); MCH 29.3 pg (27.0-35.0); MCHC 34.2 g/dL (32.0-36.0); MCV 85.4 fL (80-100); Monocytes % 8.4 % (3.3-12.3); Neutrophils % 58.2 % (41.7-73.7); Nucleated Red Blood Cells % 0.2 % (0-0); Platelets 183 thou/uL (152-406); RBC Red Blood Cell Count 4.35 M/uL (3.86-4.86); Red Cell Distribution Width 13.7 % (12.1-15.2)
[2024-11-07] MEDS: PANTOPRAZOLE 40 MG INJ IVP SCH (08:08)
[2024-11-07 08:25] LABS: Albumin 3.1 g/dL (3.4-5.0); Anion Gap 9.7 mEq/L (5.0-15.0); Bilirubin Total 0.5 mg/dL (0.2-1.0); Globulin 3.1 g/dL (2.3-3.5); Potassium 3.7 mEq/L (3.5-5.1); Protein, Total 6.2 g/dL (6.4-8.2)
[2024-11-07] MEDS: ENOXAPARIN 40 MG/0.4 ML SQ SCH (09:00)
[2024-11-07 10:43] VITALS: BMI 47.5
[2024-11-07] MEDS ORDERED: LIDOCAINE 2% MPF 5 ML VIAL ONE (10:55)
[2024-11-07] MEDS ORDERED: ROCURONIUM 50 MG/5 ML VIAL IV ONE (10:55)
[2024-11-07] MEDS ORDERED: propofoL 200 MG/20 ML VIAL IV ONE (10:55)
[2024-11-07] MEDS ORDERED: FENTANYL CITR 100 MCG/2 ML ONE (10:55)
[2024-11-07] MEDS ORDERED: MIDAZOLAM HCL 2 MG/2 ML INJ ONE (10:55)
[2024-11-07] MEDS ORDERED: ONDANSETRON 4 MG/2 ML VIAL ONE (10:55)
[2024-11-07] MEDS: NA CHLORIDE 0.9% 1,000 ML ONE ×2 (11:32→13:38)
[2024-11-07] MEDS: PIPER TAZO 3.375 GM in NA CHLORIDE 0.9% 100 ML IV ONE (11:50)
[2024-11-07] MEDS ORDERED: EPHEDRINE SULF 50 MG/ML VIAL IV ONE (12:01)
[2024-11-07] MEDS: LIDOCAINE HCL/EPINEPHRINE 20 ML MDV ONE (12:04)
[2024-11-07] MEDS ORDERED: FENTANYL CITR 100 MCG/2 ML IV ONE (12:18)
--- NOTE | 2024-11-07 13:07 | P.OP ---
Preoperative diagnosis: Cholecystitis Postoperative diagnosis: Cholecystitis Primary procedure: Laparoscopic Cholecystectomy with ICG Cholangiography Anesthesia: GETA + Local Estimated blood loss: <5cc Specimen: Gallbladder Findings: Distended GB with Stones, Cholecystitis Complications: None Transferred to: Recovery Room Condition: Good
[2024-11-07] MEDS: HYDROMORPHONE HCL 1 MG/ML INJ ONE (13:14)
[2024-11-07] MEDS: MEPERIDINE HCL 25 MG/ML SYR ONE (13:23)
--- NOTE | 2024-11-07 15:02 | P.PN ---
Date of Service: 11/07/24 Subjective Rounded on Earlene prior to surgery, she is anxious but feeling well, no increase in abdominal pain noted Hemodynamically stable N.p.o. status confirmed ROS 10 point ROS as noted above, otherwise negative Physical Exam General: Oriented x3, afebrile HEENT: Atraumatic, Normocephalic, PERRLA Neck: Supple, JVD not distended, No Thyromegaly Respiratory: Clear BBS, Normal air movement, on room air Cardiovascular: Normal pulses, RRR, Normal S1 S2, No gallops Capillary refill: <2 Seconds Gastrointestinal: Normal bowel sounds, Tenderness Musculoskeletal: No tenderness Integumentary: No rashes Neurological: Normal gait, Normal speech Vitals Reviewed Problem list Acute cholelithiasis with acute cholecystitis status post laparoscopic cholecystectomy with ICG cholangiography Chronic GERD Assessment and Plan Acute cholelithiasis with acute cholecystitis status post laparoscopic cholecystectomy with ICG cholangiography Surgical consult Dr. Aditya Mccarthy, surgery today Morphine 2 mg IV every 4 hours as needed. Zofran 4 mg IV every 6 hours as needed Zosyn IV NS at 75 mL/ hr. CLD postsurgery Both CT of the abdomen and pelvis done in ER, and ultrasound abdomen done. Chronic GERD Anxiety Restart home medication DVT ppx SCD Full code LOS 2 days
[2024-11-07] MEDS: KCL 20 MEQ/100 mL IVPB 20 MEQ/100 ML BAG IV SCH (15:20)
--- NOTE | 2024-11-07 17:12 | OP ---
Date of Procedure: 11/07/2024 Surgeon: Aditya Mccarthy MD, Preoperative Diagnosis: Cholecystitis. Postoperative Diagnosis: Cholecystitis. Procedure: Laparoscopic cholecystectomy with indocyanine green cholangiography. Anesthesia: General endotracheal plus local with 1% lidocaine with epinephrine. Estimated Blood Loss: Less than 5 cc. Specimen: Gallbladder. Findings: Distended gallbladder with stones, acute cholecystitis noted. Complications: None. Disposition: The patient transferred to recovery room in good condition. Procedure In Detail: After informed consent was obtained, patient was brought to the operating room, prepped and draped in the usual sterile fashion. After adequate anesthesia was achieved, I anesthe tized an area in the supraumbilical position down to subcutaneous tissues. A 5-mm 0-degree optical t rocar was introduced into the abdomen without incident or complication. Insufflation was obtained to 15 mmHg, at this time. No injury to vital structures upon entry into the abdomen. Three additional trocars were placed, one in the epigastrium, one in the right upper quadrant, and one in the right m id abdomen. All of these were similarly anesthetized and sharply incised and 5 mm trocar was placed under direct vision without incident or complication. The umbilical trocar was then upsized to 12 mm under direct vision without incident or complication. The patient was positioned head up right-side up position. Ratcheted grasper was used to grasp the patient's gallbladder, placed it towards the p atient's right shoulder. Dissection continued down to the Jignesh pouch of the gallbladder, dissect ing out 2 structures, identifying both the cystic duct and cystic artery. These structures were skel etonized and a critical view of safety was obtained. At this point, I performed indocyanine green an giography, confirmed the anatomy as described above. At this point, I placed double titanium clips o n the proximal side and singly on the distal side of both cystic duct and cystic artery. These struc tures were then ligated between Endo Benita and I then removed the gallbladder from the hepatic fossa without incident or complication. The gallbladder was placed in EndoCatch bag, and removed through the umbilical trocar site, sent off for pathologic examination. The area was copiously irrigated, at this point. Indocyanine green angiography confirmed no leakage of bile and the common bile duct to be intact without issue. At this point, no additional hemostatic measures were required. The area w as irrigated, suctioned out until completely dry, once again. The patient was positioned back in elly tral position. Remaining effluent was suctioned out. I then closed the 12 mm trocar site using a Marion Murillo suture passer with an 0 Vicryl in an interrupted fashion with good approximation of tis sues. The abdomen was then desufflated under direct visualization without incident or complication. Remainder of trocars were then removed. All skin incisions were then copiously irrigated and closed with a 4-0 Monocryl in a running fashion. Dermabond was placed over top. The patient tolerated the procedure without incident or complication, transferred to PACU in good condition. All counts were correct at the end of the case. RADHA/BRICE Voice ID: [id number] Report ID: [id number]
[2024-11-07] MEDS: HYDROCODONE/APAP 5/325 MG TAB PO PRN (19:56)
[2024-11-08 05:08] LABS: Absolute Lymphocytes (CBC) 1.4 K/uL (0.7-4.9); Absolute Monocytes 0.5 K/uL (0.1-1.3); Absolute Neutrophil 8.8 K/uL (1.8-8.0); Basophils % 0.1 % (0-1.3); Hematocrit 39.2 % (36.0-45.0); Hemoglobin 13.5 g/dL (12.0-15.0); Lymphocytes % 13.3 % (15.3-44.8); MCH 29.4 pg (27.0-35.0); MCHC 34.5 g/dL (32.0-36.0); MPV 7.2 fL (7.6-11.3); Monocytes % 4.7 % (3.3-12.3); Neutrophils % 81.9 % (41.7-73.7); Nucleated Red Blood Cells % 0.2 % (0-0); Platelets 238 thou/uL (152-406); RBC Red Blood Cell Count 4.61 M/uL (3.86-4.86); Red Cell Distribution Width 13.5 % (12.1-15.2)
[2024-11-08 05:20] LABS: Albumin 3.4 g/dL (3.4-5.0); Albumin/Globulin Ratio 0.9 (1.1-1.8); Anion Gap 12.8 mEq/L (5.0-15.0); Bilirubin Total 0.5 mg/dL (0.2-1.0); Globulin 3.7 g/dL (2.3-3.5); Potassium 3.8 mEq/L (3.5-5.1); Protein, Total 7.1 g/dL (6.4-8.2)
[2024-11-08] MEDS: POTASSIUM CL SA 10 MEQ TAB PO ONE (08:23)
--- NOTE | 2024-11-08 13:57 | P.DS ---
Admission Date: 11/07/24 Discharge Date: 11/08/24 Disposition: ROUTINE DISCHARGE Reason for Admission: Right upper quadrant abdominal pain Brief History of Present Illness: Patient is a pleasant 49-year-old female with past medical history of anxiety, gastroesophageal reflux disease, depression, who presents to the ER today complaining of worsening abdominal pain mostly located right upper quadrant, with associated nausea and vomiting nonbilious and nonbloody content with no associated chest pain. Patient states her symptoms started around 1 AM in the morning and have progressively worsened which then prompted her to report to ER. Patient describes her pain as constant and aching with the pain scale of 9/10 on arrival to ER. During admission assessment, patient states she felt much better compared to when she arrived to ER after receiving morphine IV. Patient positive for rebound tenderness on assessment. Patient had an ultrasound abdomen done in ER with impression of cholelithiasis with distended gallbladder and sonographic Chaney sign could be compatible with acute cholecystitis in the appropriate clinical setting though the patient has similar findings on 08/23/24. Patient CT of the abdomen impression, no acute findings within the abdomen or pelvis. Moderate stool in the cecum could reflect constipation. No appendicitis. Cholelithiasis within CT evidence of acute cholecystitis. Patient admitted with acute cholecystitis with surgical consult with Dr. Aditya Mccarthy, and he responded, spoke to the patient and schedule for surgery, and requested for patient to be n.p.o. after midnight. Hospital Course: Problem list Acute cholelithiasis with acute cholecystitis status post laparoscopic cholecystectomy with ICG cholangiography Chronic GERD Vital Signs/Physical Exam: Temp Pulse Resp BP Pulse Ox 97.9 F 70 22 H 137/72 100 11/08/24 12:00 11/08/24 12:00 11/08/24 12:00 11/08/24 12:00 11/08/24 12:00 General: Alert, In no apparent distress, Oriented x3 HEENT: Atraumatic, PERRLA Neck: Supple, JVD not distended Respiratory: Clear to auscultation bilaterally, Normal air movement Cardiovascular: Regular rate/rhythm, Normal S1 S2 Gastrointestinal: Normal bowel sounds, No tenderness Musculoskeletal: No tenderness Integumentary: No rashes Neurological: Normal speech, Normal affect Laboratory Data at Discharge: WBC 10.80 thou/uL (4.3-10.9) 11/08/24 04:30 Hgb 13.5 g/dL (12.0-15.0) 11/08/24 04:30 Hct 39.2 % (36.0-45.0) 11/08/24 04:30 Plt Count 238 thou/uL (152-406) D 11/08/24 04:30 Sodium 137 mEq/L (136-145) 11/08/24 04:30 Potassium 3.8 mEq/L (3.5-5.1) 11/08/24 04:30 BUN 6 mg/dL (7-18) L 11/08/24 04:30 Creatinine 1.22 mg/dL (0.55-1.02) H 11/08/24 04:30 Glucose 112 mg/dL (74-106) H 11/08/24 04:30 Total Bilirubin 0.5 mg/dL (0.2-1.0) 11/08/24 04:30 AST 25 U/L (15-37) 11/08/24 04:30 ALT 33 U/L (13-56) 11/08/24 04:30 Alkaline Phosphatase 84 U/L (45-117) 11/08/24 04:30 Lipase 35 U/L (13-75) 11/06/24 05:49 Home Medications: Buspirone HCl [Buspar*] 5 mg PO BID 11/06/24 Cetirizine HCl [All Day Allergy Relief] 10 mg PO DAILY 11/06/24 Esomeprazole Magnesium 20 mg PO DAILY 11/06/24 Eszopiclone [Lunesta] 3 mg PO BEDTIME 11/06/24 Fluoxetine HCl [Prozac] 80 mg PO DAILY 11/06/24 Levothyroxine [Synthroid*] 75 mcg PO [id number] 11/06/24 Prazosin HCl 1 mg PO BEDTIME 11/06/24 Propranolol [Inderal*] 20 mg PO BID 11/06/24 clonazePAM [Clonazepam] 1 mg PO TID PRN 11/06/24 Hydrocodone 5/APAP 325 [[place] 5/325*] 1 tab PO Q6H PRN #15 tab 11/08/24 New Medications: Hydrocodone 5/APAP 325 [[place] 5/325*] 1 tab PO Q6H PRN #15 tab PRN Reason: Pain Scale 5-7 (Moderate) Physician Discharge Instructions: Patient was admitted to the hospital for acute cholecystitis. She underwent laparoscopic cholecystectomy on 11/07 and is doing well postoperatively. She is stable for discharge and outpatient follow-up with general surgery. Additional instructions provided by general surgery. [facility] Continuing Blood Coordinator: SAI Gallo [phone]. Expect a call within 1-2 business days from discharge. Alternate: SAI Watson [phone]. Followup: Sincere Corley MD [Primary Care Provider] - Aditya Mccarthy MD [ACTIVE - CAN ADMIT] - Time spent managing pt's care (in minutes): 45
[2024-11-08 18:53] VITALS: TEMP 97.6
[2024-11-08 18:59] VITALS: BP 142/93; O2SAT 99
== END 2024-11-08 16:08 | disposition home or self-care (01) | DRG 418 ==
LOC: ER 05:25 → ERHOLD 09:57 → 2ND 14:03 → OBSVTOIN 11-07 15:03
PROVIDERS: ADMIT Hospitalist; ATTEND Hospitalist
PROC: BF52200 Other Imaging of Gallbladder using Fluorescing Agent, Indocyanine Green Dye, Intraoperative (ICD-10-PCS; 2024-11-07)
PROC: 0FT44ZZ Resection of Gallbladder, Percutaneous Endoscopic Approach (ICD-10-PCS; principal; 2024-11-07 11:00)
DX: K80.00 Calculus of gallbladder with acute cholecystitis without obstruction (principal); Z68.42 Body mass index [BMI] 45.0-49.9, adult; E66.01 Morbid (severe) obesity due to excess calories; K59.00 Constipation, unspecified; F41.9 Anxiety disorder, unspecified; K21.9 Gastro-esophageal reflux disease without esophagitis; Z88.5 Allergy status to narcotic agent; Z79.890 Hormone replacement therapy; Z79.899 Other long term (current) drug therapy
CPT/HCPCS: 36415; 74177; 76705; 80053; 81001; 83690; 85025; 88304; 96372; 96374; 96375; 99285; G0378; J1171; J1650; J2003; J2175; J2250; J2270; J2405; J2470; J2543; J2550; J2704; J3010; J3480; J7030; Q9967